=== PATIENT | male | born 1955 | race African-American/Black ===

== ENCOUNTER 2025-10-17 12:46 | Emergency (ER) | payer MEDICARE ==
[~2025-10-17] VITALS: Ht 185.4 cm; Wt 100.0 kg
[2025-10-17 12:48] VITALS: O2SAT 99
[2025-10-17] MEDS: HYDROCODONE/ACETAMINOPHEN 5/325MG TABLET PO ONE (13:29)
[2025-10-17] MEDS: LIDOCAINE HCL 1% 20ML VIAL INFIL ONE (13:29)
[2025-10-17] MEDS: TETANUS, DIPHTHERIA, PERTUSSIS VAC/PF 0.5ML (>10YR OLD) IM ONE (13:48)
[2025-10-17 13:50] LABS: BASOPHILS % 0.8 % (0.0-2.0); EOSINOPHILS % 2.6 % (0.0-5.0); HEMATOCRIT. 32.8 % (42.0-52.0); HEMOGLOBIN. 10.5 g/dL (14.0-18.0); LYMPHOCYTES % 24.4 % (20.0-50.0); MEAN PLATELET VOLUME 9.1 fl (7.4-10.4); MONOCYTES % 10.8 % (2.0-8.0); NEUTROPHILS % 61.4 % (40.0-76.0); PLATELET 124 x1000/uL (130-400); RED BLOOD CELL COUNT 3.83 mill/uL (4.7-6.1); RED CELL DISTRIBUTION WIDTH 18.0 % (11.6-14.6)
[2025-10-17 13:51] LABS: UREA NITROGEN BLOOD 25.0 mg/dL (9-23)
[2025-10-17 14:01] LABS: CREATININE 8.1 mg/dL (0.6-1.3)
[2025-10-17] MEDS ORDERED: TOPUD MT (17:20)
[2025-10-17] MEDS ORDERED: CEPH500C2 MT (17:20)
[2025-10-17 17:43] VITALS: BP 145/58; PULSE 77; RESP 12; TEMP 36.9; O2SAT 99
== END 2025-10-17 18:12 | disposition home or self-care (01) ==
LOC: ER 13:06
DX: S01.511A Laceration without foreign body of lip, initial encounter (principal); S09.90XA Unspecified injury of head, initial encounter; N18.6 End stage renal disease; Z99.2 Dependence on renal dialysis; W19.XXXA Unspecified fall, initial encounter; Y93.89 Activity, other specified; Y92.89 Other specified places as the place of occurrence of the external cause; Y99.8 Other external cause status
CPT/HCPCS: 99285; 70450; 80048; 85025; 36415; 73030; 73060; 73070; 73090; 70486; 90715; 12013; 90471; 93005; J2003; A4606

== ENCOUNTER 2025-10-23 12:48 | Emergency (ER) | payer MEDICARE ==
[~2025-10-23] VITALS: Ht 188 cm; Wt 96.0 kg
[~2025-10-23 12:48] MED LIST: CEPH500C2 MT; TOPUD MT
[2025-10-23 12:57] VITALS: TEMP 36.6; O2SAT 100
[2025-10-23 13:35] VITALS: BP 121/57; PULSE 103; RESP 16; O2SAT 100
== END 2025-10-23 13:37 | disposition home or self-care (01) ==
LOC: ER 12:48
DX: S01.511D Laceration without foreign body of lip, subsequent encounter (principal); X58.XXXD Exposure to other specified factors, subsequent encounter
CPT/HCPCS: 99282